=== PATIENT | male | born 1980 | race Two or more races ===

== ENCOUNTER 2024-12-16 11:12 | Inpatient (IN) | payer BC, SELFPAY ==
[2024-12-16] VITALS (25 sets, daily range): BP systolic 138–172; BP diastolic 54–107; PULSE 60–103; RESP 13–30; TEMP 36.1–37; O2SAT 95–100; BMI 34.4
--- NOTE | 2024-12-16 11:17 | EKG_ITS ---
[facility] Test Date: 2024-12-16 Pat Name: POPEYE BASHIR Department: Room: - Gender: Male Cost Specialist: : 1980 Requested By: Best Crowley Order Number: [id number] Reading MD: Best Crowley Measurements Intervals Winner Rate: 77 P: 49 VA: 182 QRS: -28 QRSD: 131 T: 89 QT: 386 QTc: 437 Interpretive Statements SINUS RHYTHM BORDERLINE LEFT AXIS DEVIATION [QRS AXIS < -20] INTRAVENTRICULAR CONDUCTION DELAY [130+ ms QRS DURATION] No previous ECG available for comparison /store/S0/[id number]
--- NOTE | 2024-12-16 11:26 | PD.EDRME ---
Rapid Medical Screening Exam RME Arrival date/time: 12/16/24 11:12 44-year-old male with no known medical history presents to the emergency room with a chief complaint of 8 out of 10 sternal chest pain that radiates to the bilateral shoulders x 2 hours. I have greeted and performed a focused initial assessment of this patient. A comprehensive ED assessment and evaluation of the patient, analysis of all test results, and completion of the medical decision making process will be conducted by additional ED providers. Chief Complaint: Chest Pain Vital signs reviewed by provider: Yes
--- NOTE | 2024-12-16 11:34 | EDNOTE_ITS ---
ED Chest Pain RME/HPI General Chief Complaint: Chest Pain Stated Complaint: Chest pain X 2 hours, radiating to left shoulder Time Seen by Provider: 12/16/24 11:34 Arrival date/time: 12/16/24 11:12 RME / HPI RME / HPI narrative: 12/16/24 11:12 44-year-old male with no known medical history presents to the emergency room with a chief complaint of 8 out of 10 sternal chest pain that radiates to the bilateral shoulders x 2 hours. I have greeted and performed a focused initial assessment of this patient. A comprehensive ED assessment and evaluation of the patient, analysis of all test results, and completion of the medical decision making process will be conducted by additional ED providers. This section includes all my notes and documentations, including HPI, PE, and ED course.? Pedro Perry MD HPI: 44 year old male with no stated medical history presents to the ED for evaluation of chest pain beginning at 09:00AM (about 2 hours ago) today while working out at the gym. Described pain as tightness in sensation that is located across his chest with radiation to bilateral shoulders, rating 8/10 in severity. Accompanied by sweating, nausea, and feeling short of breath. Denies any history of similar pain. No other complaints reported. ROS: All negative except as documented in HPI. Physical Exam: General:? Alert and oriented.? Appears uncomfortable. Eyes:? Conjunctivae and lids clear.? ENT:? No nasal congestion.? Neck:? Supple.? Heart:? RRR.? Lungs:? No respiratory distress.? Good air movement.? No rhonchi, wheezing, rales.?? Abdomen:? Soft and nontender.?? Legs:? No clubbing, cyanosis, edema.? Skin:? Warm and dry.?? Neuro:? Alert and oriented X 3.?? I reviewed all diagnostic test results. My interpretation of the EKG is?STEMI. Blood tests pending. At this point, diagnoses include?STEMI. Treatment here included?ASA and Brillinta and Heparin. I discussed the case with our eye physician who will take the patient to quality lab technician and be admitted by hospitalist team.? Discussed the presentation and exam and diagnostics and treatments here.? And need of further care in the hospital.? Will accept the patient. Pedro Perry MD Related Data Previous Rx's ?Medication ?Instructions ?Recorded aspirin 81 mg tablet,delayed 81 mg PO QDAY 6 months #1 80 tabs 12/16/24 release (Ecotrin Low Strength) atorvastatin 80 mg tablet 80 mg PO HS 6 months #180 ta bs 12/16/24 ticagrelor 90 mg tablet (Brilinta) 90 mg PO BID 6 isabella hs #360 tabs 12/16/24 carvedilol 6.25 mg tablet 6.25 mg PO BID #60 tabs 01/10 valsartan 160 mg tablet 160 mg PO BID #60 tabs 12/18 Allergies Allergy/AdvReac Type Severity Reaction Status Date / Time No Known Allergies Allergy Verified 12/16/24 11:16 Review of Systems Review of Systems Systems Reviewed: All systems reviewed, normal except as documented Past Medical History Past Medical History CARDIAC: Negative Congestive Heart Failure RESPIRATORY: Negative Chronic Obstructive Pulmonary Disease (COPD) GENITOURINARY: Negative Renal Disease ENDOCRINE: Negative Diabetes Mellitus Type 1 or Diabetes Mellitus Type 2 Social History SMOKING STATUS: Never smoker ED Exam Narrative Physical exam: As noted in HPI Course Quality Measures none Orders Category Date Time Status COVID-19 Screening Questionnaire NOW Care 12/16/24 11:40 Completed Decision to Admit X1 Care 12/16/24 11:40 Completed EKG (ED ONLY) *Do not use* NOW Care 12/16/24 11:18 Completed Saline [Insert IV] NOW Care 12/16/24 11:36 Completed Consult to Cardiology Stat Cons 12/16/24 11:36 Ordered EKG (ED Only) Stat Exams 12/16/24 11:17 Draft B-Type Natriuretic Peptide Stat Lab 12/16/24 11:37 Completed CBC Stat Lab 12/16/24 11:37 Completed Comprehensive Metabolic Panel Stat Lab 12/16/24 11:37 Completed Drug Screen,Urine Stat Lab 12/17/24 09:50 Completed Magnesium Stat Lab 12/16/24 11:37 Completed Troponin I Stat Lab 12/16/24 11:37 Completed Urinalysis Stat Lab 12/17/24 09:50 Completed Aspirin Chew Med 12/16/24 11:34 Discontinued 324 mg PO X1 ONE Heparin Inj Med 12/16/24 11:34 Discontinued 7,000 unit IVP X1 ONE Ticagrelor [Brilinta] Med 12/16/24 11:34 Discontinued 180 mg PO X1 ONE Vital Signs Vital signs: Vital Signs Temperature 97.8 F 12/16/24 11:26 Pulse Rate 84 12/16/24 11:26 Respiratory Rate 16 12/16/24 11:26 Blood Pressure 172/94 H 12/16/24 11:26 Pulse Oximetry (%) 99 12/16/24 11:26 Oxygen Delivery Method Room Air 12/16/24 11:26 Pulse ox is 99% on room air which is adequate. Chest Pain Patient data External records reviewed:: [facility] previous records (Per EMR, no previous visits for review ) Clinical information provided by:: patient Social determinants that could affect healthcare access:: none Patient has the following chronic illnesses:: None How is presenting disease/condition affected by chronic disease/condition?: no chronic disease Evaluation data The following diagnostics were reviewed and interpreted by me:: lab results and EKG tracing(s) Lab and/or radiology exams considered but not ordered:: none Interpretation Summary: STEMI Medications / Prescriptions Medications or Prescriptions considered but not ordered:: None Medication administrations:: Medication Administration History Discontinued Medications Acetaminophen (Acetaminophen 325 Mg Tablet) 650 mg PO Q6H PRN PRN Reason: Fever >101.5 Stop: 01/15/25 11:43 Acetaminophen (Acetaminophen 325 Mg Tablet) 650 mg PO Q6H PRN PRN Reason: PAIN SCALE 1-3 (mild Stop: 01/15/25 11:43 Last Admin: 12/16/24 21:23 Dose: 650 mg Documented By: RAZ Hydrocodone Bitart/Acetaminophen (Hydrocodone/Apap 5/325 Tablet) 1 tab PO Q4HR PRN PRN Reason: PAIN SCALE 4-6 (Moderate Stop: 12/21/24 11:43 Last Admin: 12/17/24 00:26 Dose: 1 tab Documented By: RASHAD Aspirin (Aspirin 81 Mg Chew) 324 mg PO X1 ONE Stop: 12/16/24 11:35 Last Admin: 12/16/24 17:11 Dose: Not Given Documented By: BLAINE Non-Admin Reason: Duplicate Medication on eMAR Aspirin (Aspirin Ec 81 Mg Tabec) 81 mg PO QDAY ANNETTE Stop: 01/16/25 08:59 Last Admin: 12/18/24 08:15 Dose: 81 mg Documented By: Admin: 12/17/24 08:04 Dose: 81 mg Documented By: ER Atorvastatin Calcium (Atorvastatin Calcium 20 Mg Tablet) 80 mg PO HS [facility] Stop: 01/15/25 20:59 Last Admin: 12/17/24 20:40 Dose: 80 mg Documented By: Admin: 12/16/24 21:23 Dose: 80 mg Documented By: CMN Atorvastatin Calcium (Atorvastatin Calcium 20 Mg Tablet) 80 mg PO [facility] Stop: 01/15/25 20:59 Last Admin: 12/16/24 21:39 Dose: Not Given Documented By: CMN Non-Admin Reason: Duplicate Medication on eMAR Carvedilol (Carvedilol 3.125 Mg Tablet) 3.125 mg PO BIDWM [facility] Stop: 01/15/25 18:24 Last Admin: 12/17/24 08:03 Dose: 3.125 mg Documented By: Admin: 12/16/24 19:03 Dose: 3.125 mg Documented By: ER Carvedilol (Carvedilol 3.125 Mg Tablet) 6.25 mg PO BIDWM [facility] Stop: 01/16/25 17:29 Last Admin: 12/18/24 08:18 Dose: 6.25 mg Documented By: Admin: 12/17/24 17:40 Dose: 6.25 mg Documented By: ER Heparin Sodium (Porcine) (Heparin Sod Inj 5000 Unit/Ml Vial) 7,000 unit IVP X1 ONE Stop: 12/16/24 11:35 Last Admin: 12/16/24 17:11 Dose: Not Given Documented By: DL Non-Admin Reason: Duplicate Medication on eMAR Heparin Sodium (Porcine) (Heparin Sod Inj 5000 Unit/Ml Vial) 5,000 unit SC BID [facility] Stop: 12/30/24 20:59 Potassium Chloride (Kcl Ivpb) 10 meq in 100 mls @ 100 mls/hr IV Q1H ANNETTE Stop: 12/16/24 14:22 Last Admin: 12/16/24 17:43 Dose: Not Given Documented By: ER Non-Admin Reason: PT IN OTHER UNIT, CHART CLEAN U Admin: 12/16/24 17:42 Dose: Not Given Documented By: ER Non-Admin Reason: PT IN OTHER UNIT, CHART CLEAN U Magnesium Sulfate (Magnesium Sulfate Ivpb) 2 gm in 50 mls @ 25 mls/hr IV X1 ONE Stop: 12/16/24 14:22 Last Admin: 12/16/24 17:42 Dose: Not Given Documented By: ER Non-Admin Reason: PT IN OTHER UNIT, CHART CLEAN UP Sodium Chloride (Ns 0.45%) 500 mls @ 100 mls/hr IV .Q5H [facility] Stop: 01/15/25 13:29 Last Admin: 12/16/24 18:21 Dose: Not Given Documented By: ER Non-Admin Reason: Cancelled by Provider Admin: 12/16/24 13:30 Dose: 100 mls/hr Documented By: DL Melatonin (Melatonin 3 Mg Tablet) 3 mg PO X1 ONE Stop: 12/16/24 21:32 Last Admin: 12/16/24 21:43 Dose: 3 mg Documented By: CMN Morphine Sulfate (Morphine Sulf Inj 10 Mg/Ml Vial) 2 mg IVP Q4HR PRN PRN Reason: Pain 7-10 Stop: 12/21/24 14:47 Nitroglycerin (Nitroglycerin 0.4 Mg Subl Btl #25) 0.4 mg SL Q5MIN PRN PRN Reason: CHEST PAIN Ondansetron HCl (Ondansetron Inj 2 Mg/Ml Inj 2 Ml) 4 mg IV Q6H PRN; Protocol PRN Reason: NAUSEA OR VOMITING Stop: 01/15/25 11:43 Last Admin: 12/17/24 00:27 Dose: 4 mg Documented By: RH Pantoprazole Sodium (Pantoprazole Inj 40 Mg Vial) 40 mg IVP QDAY [facility] Stop: 01/16/25 08:59 Last Admin: 12/17/24 08:04 Dose: 40 mg Documented By: ER Potassium Chloride (Potassium Chloride 20 Meq Tabcr) 40 meq PO X1 ONE Stop: 12/17/24 12:55 Last Admin: 12/17/24 13:23 Dose: 40 meq Documented By: ER Sennosides (Senna Tablet) 1 tab PO QDAY PRN; Protocol PRN Reason: constipation Stop: 01/15/25 11:43 Ticagrelor (Ticagrelor 90 Mg Tablet) 180 mg PO X1 ONE Stop: 12/16/24 11:35 Last Admin: 12/16/24 17:11 Dose: Not Given Documented By: DL Non-Admin Reason: Duplicate Medication on eMAR Ticagrelor (Ticagrelor 90 Mg Tablet) 90 mg PO BID ANNETTE Stop: 01/16/25 08:59 Last Admin: 12/18/24 08:14 Dose: 90 mg Documented By: Admin: 12/17/24 20:44 Dose: 90 mg Documented By: Admin: 12/17/24 08:04 Dose: 90 mg Documented By: ER Ticagrelor (Ticagrelor 90 Mg Tablet) 90 mg PO X1 ONE Stop: 12/16/24 20:01 Last Admin: 12/16/24 21:25 Dose: 90 mg Documented By: RAZ Ticagrelor (Ticagrelor 90 Mg Tablet) 90 mg PO BID ANNETTE Stop: 01/16/25 08:59 Valsartan (Valsartan 80 Mg Tablet) 80 mg PO BID ANNETTE Stop: 01/15/25 20:59 Last Admin: 12/18/24 08:15 Dose: 80 mg Documented By: Admin: 12/17/24 20:42 Dose: 80 mg Documented By: Admin: 12/17/24 08:04 Dose: 80 mg Documented By: Admin: 12/16/24 21:23 Dose: 80 mg Documented By: RAZ ASA and Brillinta and Heparin Consultations Consultation(s) initiated? (list below): Yes Consultation #1 (Physician, Specialty, Details): I spoke with our eye physician Dr. Ward and he agrees to consult. Diagnosis Chest Pain Differential Diagnosis: pneumothorax, stable angina, unstable angina pectoris, atypical chest pain, st elevation myocardial infarction and costochondritis Most likely diagnosis given after review of the tests above:: STEMI Admission Indicated Admission indicated?: indicated Explain why admission is indicated or not indicated:: STEMI Admission Request Was there a request for admission?: Yes Admission Attestation Admission request attestation: Discussed case with Hospitalist service regarding admission. Discussed patients ED course, exam findings, labs, and radiology results. The Hospitalist [agrees] to accept the patient for admission. Disposition Plan Disposition Plan: Admit Discharge Plan Plan Patient Disposition: Admit Acute Care w/in Hospital Patient condition on transfer: Stable Problem List Clinical Impression: ST elevation myocardial infarction (STEMI) Patient/Caregiver Discharge Instructions Discharge Activity: other Other Activity Instructions:: Please refrain from lifting weights for 5 days, slowly increasing physical activity. No driving for 5 days. Start new medication aspirin 81 mg daily, atorvastatin 80 mg daily, Brilinta 90 mg twice daily, valsartan 160 mg twice daily, Coreg 6.25 twice a day. Low salt, low fat diet. Avoid greasy foods/fast food Schedule follow-up appointment with eye physician Dr. Ed FERRELL. Schedule follow-up appointment with your primary care provider Please return to ED if new symptoms occur such as any shortness of breath, chest pain, weakness.
--- NOTE | 2024-12-16 11:42 | PC.NURSE ---
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
[2024-12-16 11:45] LABS: Basophils % (Auto) 0 % (0-2.5); Eosinophils # (Auto) 0.1 Thou/mm3 (0.0-0.5); Eosinophils % (Auto) 0 % (0-10); Hematocrit 48.7 % (41.0-53.0); Hemoglobin 16.9 g/dL (13.5-16.0); Immature Granulocytes % (Auto) 0 % (0-0); Immature Granulocytes Auto 0.05 Thou/mm3 (0.00-0.00); Lymphocytes # (Auto) 2.1 Thou/mm3 (1.0-4.8); Lymphocytes % (Auto) 14 % (10-50); Mean Corpuscular HGB Conc 34.7 g/dl (31.0-37.0); Mean Corpuscular Hemoglobin 30.4 pg (25.0-35.0); Mean Corpuscular Volume 88 fL (80-100); Monocytes # (Auto) 1.1 Thou/mm3 (0.0-0.8); Monocytes % (Auto) 7 % (0-12); Neutrophils # (Auto) 12.4 Thou/mm3 (1.8-7.7); Neutrophils % (Auto) 79 % (37-80); Nucleated Red Blood Cell % 0 /100 WBC (0); Platelet Count 213 Thou/mm3 (140-440); RDW Standard Deviation 45.2 fL (35.1-43.9); Red Blood Count 5.56 Miln/mm3 (4.50-5.90); White Blood Count 15.8 Thou/mm3 (3.8-10.6)
--- NOTE | 2024-12-16 11:49 | PD.RESHP ---
Documentation for date of: 12/16/24 HPI History of Present Illness Chief complaint: chest pain History of present illness: This patient is a 44-year-old male with no significant past medical history presented to the ED on 12/16/2024 with chief complaint of chest pain, nausea and shortness of breath. Per Ground Host/Hostess chart nurse patient was doing exercises in gym after which he developed chest pain. He was also having associated nausea and shortness of breath. He was brought in the ED. Patient's history was taking in the [employer]. He reported that he developed chest pain while working out at the gym. He reported that he never had experience this kind of chest pain pain was 8 out of 10 pain to both shoulders. He also has associated breathing difficulty with anxiety. 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 He does have some social stressors however did not share during assessment. He denied any smoking or drinking alcohol or illicit drug use. Vitals on admission showed elevated blood pressure of 172/94. Pulse 84 bpm. Afebrile and satting well on room air. EKG showed ST-T elevations in lead to 3 [address] reciprocal ST depressions in anterior leads V1 and V2. Labs were significant for leukocytosis and erythrocytosis. CHEM panel was significant for borderline hypokalemia. Kidney functions were unremarkable. Blood glucose 131. Mildly elevated AST.Troponin I was 0.758. PMH: Not significant PSH: Inguinal hernia surgery in childhood SH: Denies drinking alcohol, smoking tobacco. No history of illicit drug use. 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 He is not . He has 2 kids. Home medications: Not taking any medications Family history: Mother has diabetes no cardiac history Allergies: NKDA Patient is admitted for STEMI s/p complex PCI to PJ and PDA with thrombectomy. Review of Systems Review of Systems Systems Reviewed: All systems reviewed, normal except as documented Exam Vital Signs Temp Pulse Resp BP Pulse Ox O2 Del Method 97.8 F 84 16 172/94 H 99 Room Air 12/16/24 11:26 12/16/24 11:26 12/16/24 11:26 12/16/24 11:26 12/16/24 11:26 12/16/24 11:26 Narrative Exam GENERAL APPEARANCE: AxOx4, male in no acute distress. HEENT: NC, AT. MMM. EOMI, clear conjunctiva, oropharynx clear. NECK: Supple without lymphadenopathy. No stiffness or restricted ROM. HEART: Regular rate and regular rhythm, normal S1/S2, no m/r/g LUNGS: CTAB, moving air well. No crackles or wheezes are heard. ABDOMEN: Soft, nontender, nondistended with good bowel sounds heard. BACK: No CVAT, no obvious deformity. EXTREMITIES: Without cyanosis, clubbing or edema. NEUROLOGICAL: Grossly nonfocal. Alert and oriented, moving all 4 extremities. CN not formally tested but appear grossly intact. Observed to ambulate with normal gait. Skin: Warm and dry without any rash. Results: Labs 12/17/24 04:44 12/17/24 04:44 Quality Measures Quality Measures VTE prophylaxis Medications Home Medications and Allergies Allergies Allergy/AdvReac Type Severity Reaction Status Date / Time No Known Allergies Allergy Verified 12/16/24 11:16 Visit Medications Acetaminophen (Acetaminophen 325 Mg Tablet) 650 mg PO Q6H PRN PRN Reason: Fever >101.5 Stop: 01/15/25 11:43 Acetaminophen (Acetaminophen 325 Mg Tablet) 650 mg PO Q6H PRN PRN Reason: PAIN SCALE 1-3 (mild Stop: 01/15/25 11:43 Hydrocodone Bitart/Acetaminophen (Hydrocodone/Apap 5/325 Tablet) 1 tab PO Q4HR PRN PRN Reason: PAIN SCALE 4-6 (Moderate Stop: 12/21/24 11:43 Nitroglycerin (Nitroglycerin 0.4 Mg Subl Btl #25) 0.4 mg SL Q5MIN PRN PRN Reason: CHEST PAIN Ondansetron HCl (Ondansetron Inj 2 Mg/Ml Inj 2 Ml) 4 mg IV Q6H PRN; Protocol PRN Reason: NAUSEA OR VOMITING Stop: 01/15/25 11:43 Pantoprazole Sodium (Pantoprazole Inj 40 Mg Vial) 40 mg IVP QDAY ANNETTE Stop: 01/16/25 08:59 Sennosides (Senna Tablet) 1 tab PO QDAY PRN; Protocol PRN Reason: constipation Stop: 01/15/25 11:43 Discontinued Medications Aspirin (Aspirin 81 Mg Chew) 324 mg PO X1 ONE Stop: 12/16/24 11:35 Heparin Sodium (Porcine) (Heparin Sod Inj 5000 Unit/Ml Vial) 7,000 unit IVP X1 ONE Stop: 12/16/24 11:35 Ticagrelor (Ticagrelor 90 Mg Tablet) 180 mg PO X1 ONE Stop: 12/16/24 11:35 Assessment & Plan Plan Summary: This patient is a 44-year-old male with no significant past medical history presented to ED with symptoms of chest pain. Patient is admitted for STEMI workup. Underwent cardiac angiogram and had stents placed in PJ and PDA with thrombectomy by Dr. Ward, education consultant. #ACS #STEMI,Inferior Wall WA #S/p PCI to PDA and PJ with thrombectomy #Mild hypotension ?Patient presented with chest pain most likely typical. Patient was working out in gym developed nausea and shortness of breath as well. Denies smoking or drinking alcohol ? EKG showed ST elevations in lead to 3 and reciprocal changes in lead V1 and V2 with ST depressions. ? Labs were significant for mild leukocytosis and erythrocytosis. BUN 19 and creatinine 1.1 ? In the ED patient received aspirin and Brilinta bolus. ?Heart alert was initiated Plan: ?Cardiac angiogram was performed after cardiac consultation, by Dr. Ward ? Stents were placed in PJ and PDA with thrombectomy ? Recommended to continue aspirin 81 mg and Brilinta 90 mg twice daily with high-dose statin atorvastatin 80 mg at bedtime ? Per cardio, patient beta-fam at discharge ? Patient will be in ICU for close observation due to hypotension ? Pain control and nausea control as needed ? Daily labs ? Troponin every 6 hourly ? Replete electrolytes as necessary ? Follow-up with A1c, TSH and lipid panel #Leukocytosis likely reactive -WBC 15.8 Plan: ? Follow-up with CBC ? Monitor for fever spikes #Erythrocytosis ? Hemoglobin 16.9 ? Will ask for history of supplements use Plan: ? Continue IV fluids ? Daily CBC #Hyperglycemia ? Blood glucose 131 BMI 34 Plan: ? Follow-up with A1c #Electrolyte disturbance #Hypokalemia Plan: ?Ordered IV 20 mEq KCl x 1 ? Replete electrolytes as necessary Health Maintenance Diet:NPO GI Prophylaxis: Protonix DVT Prophylaxis: Heparin SC Code status: Full Code Disp: Admitted for STEMI workup s/p PCI stents to PJ and PDA with thrombectomy. -- Patient was seen and discussed with my attending Physician,MD Dr Janae Tolbert MD,PGY2 Disclaimer: This note was dictated by speech recognition. 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 Attending Provider Attestation/Addendum I have examined the patient, reviewed labs and imaging findings, discussed the case with the resident(s), and reviewed entered orders. I agree with the plan of care as outlined in this document. Patient presented with chest pain and heart alert was called and found to have multiple occlusions in PDA and PJ status post stent placement and thrombectomy. Patient will be upgraded to ICU for close monitoring overnight. Will resume care tomorrow as patient is stable. Jose Weaver MD
[2024-12-16 12:03] LABS: B-Type Natriuretic Peptide < 20 pg/mL (0-100)
[2024-12-16 12:09] LABS: Alanine Aminotransferase 45 U/L (10-49); Albumin, Serum 4.5 gm/dL (3.5-5.0); Albumin/Globulin Ratio 1.3 (1.2-2.2); Alkaline Phosphatase 53 U/L (46-116); Anion Gap 8 (7-16); Aspartate Amino Transferase 55 U/L (0-34); BUN/Creatinine Ratio 17 Ratio (12-20); Bilirubin,Total 0.6 mg/dL (0.3-1.2); Blood Urea Nitrogen 19 mg/dL (9-23); Calcium 8.8 mg/dL (8.3-10.6); Calcium (Corrected) 8.8 mg/dL (8.5-10.1); Carbon Dioxide 26.3 mMol/L (20.0-31.0); Chloride 103 mMol/L (98-107); Creatinine (Component) 1.1 mg/dL (0.6-1.3); Estimated Creatinine Clearance 121.2 mL/min (>60); Globulin 3.4 gm/dL (2.3-3.5); Glucose 131 mg/dL (74-106); Magnesium 1.8 mg/dL (1.6-2.6); Osmolality,Calculated 278 (275-295); Potassium 3.5 mMol/L (3.4-5.1); Sodium 137 mMol/L (136-145); Total Protein 7.9 gm/dL (5.7-8.2); eGFR > 60 See Note
[2024-12-16 12:13] LABS: Troponin I 0.758 ng/mL (0.0-0.045)
--- NOTE | 2024-12-16 12:23 | ECHO_ITS ---
Transthoracic Echo Report Ht (in): 74 Wt (lb): 268 Exam Location: Echo Lab Status: Preadmit Blocker And Cutter Contact Lens: Alba Pugh Indications: Procedure Performed: BP: 143 / 73 HR: 73 Technical Quality: Technically difficult study MEASUREMENTS (Male / Female) Normal Values 2D ECHO LV Diastolic Diameter PLAX 5.1 cm 4.2 - 5.9 / 3.9 - 5.3 cm LV Systolic Diameter PLAX 3.7 cm IVS Diastolic Thickness 1.3 cm 0.6 - 1.0 / 0.6 - 0.9 cm LVPW Diastolic Thickness 1.3 cm 0.6 - 1.0 / 0.6 - 0.9 cm LV Relative Wall Thickness 0.5 LVOT Diameter 1.8 cm LA Volume Index 23.0 cm?/m? 16 - 28 cm?/m? M-MODE Aortic Root Diameter MM 3.4 cm AV Cusp Separation MM 2.5 cm DOPPLER AV Peak Velocity 136.0 cm/s AV Peak Gradient 7.4 mmHg AV Mean Gradient 4.0 mmHg AV Velocity Time Integral 23.3 cm LVOT Peak Velocity 125.0 cm/s LVOT Peak Gradient 6.3 mmHg LVOT Velocity Time Integral 23.7 cm LVOT Cardiac Index 1722.2 cm?/min?m? AV Area Cont Eq vti 2.6 cm? AV Area Cont Eq pk 2.3 cm? MV Area PHT 5.1 cm? Mitral E Point Velocity 71.3 cm/s Mitral A Point Velocity 50.4 cm/s Mitral E to A Ratio 1.4 LV E' Lateral Velocity 10.8 cm/s Mitral E to LV E' Lateral Ratio 6.6 LV E' Septal Velocity 9.9 cm/s Mitral E to LV E' Septal Ratio 7.2 PV Peak Velocity 109.0 cm/s PV Peak Gradient 4.8 mmHg FINDINGS Left Ventricle Normal left ventricular size. Hypokinetic mid-inferolateral wall motion. Mild LVH. Normal left ventricular diastolic filling pattern for age. The ejection fraction is visually estimated at 50%. Right Ventricle The right ventricle is normal in size and systolic function. Left Atrium The left atrium is normal by two-dimensional, color flow and Doppler imaging with no structural abnormalities, no thrombus formation present. Right Atrium The right atrium is normal by two-dimensional imaging, color flow and Doppler imaging with no structural abnormalities, no thrombus formation present. Atrial Septum The interatrial septum appears normal with no evidence of a shunt. Aorta The aorta is normal by two-dimensional, color flow and Doppler interrogation. Mitral Valve The mitral valve is normal by two-dimensional, color flow and Doppler interrogation. There is no significant mitral valve regurgitation, stenosis or prolapse. Aortic Valve The aortic valve is trileaflet and normal by two-dimensional, color flow and Doppler interrogation. There is no significant aortic valve regurgitation. Tricuspid Valve The tricuspid valve is normal by two-dimensional, color flow and Doppler interrogation. There is no significant tricuspid valve regurgitation. Pulmonic Valve The pulmonic valve is not well visualized. There is no significant pulmonic valve regurgitation. Vessels The pulmonary artery appears normal. The inferior vena cava pulmonary and hepatic veins appear normal. Pericardium The pericardium is normal by two-dimensional imaging. There is no significant pericardial effusion. CONCLUSIONS Indication: STEMI Normal LV size. Hypokinetic mid-inferolateral wall motion. Mild LVH. Estimated EF 50%. RV is normal in size and systolic function. Triny Gooden (Electronically Signed) Final Date: 18 December 2024 00:30
[2024-12-16] MEDS: SODIUM CHLORIDE 0.45 % 500 ML 100 ML IV (13:30)
--- NOTE | 2024-12-16 14:21 | PC.NURSE ---
[id number] patient is awake, alert, breathing unlabored, s/p LHC by Dr. Ward, report received from Delbert MEMBRENO. patient to receive aspirin tomorrow and brilinta 90mg tonight.
--- NOTE | 2024-12-16 14:24 | PC.NURSE ---
1400 report given to Vu MEMBRENO. TR band to right wrist with no bleeding or hematoma
--- NOTE | 2024-12-16 16:30 | PC.NURSE ---
report given to TEMI Dawson RN aware that patient needs to rest the right wrist for the next 3-5 days and cannot lift anything heavier or equal to 5 pounds blue coband can be removed on 11/16/24 at 1645 and clear tegaderm (which is under the tegaderm) can be removed 48 hours later on 11/17/24 at 1645 patient stable on RA
--- NOTE | 2024-12-16 18:52 | ESCONSULT_ITS ---
<Statement entered by Nikki Zhang DO - 12/16/24 21:19> Senior attestation: Patient was examined and case was reviewed with team including attending physician. Note reviewed, I agree with most of its contents and agree with the patient's care. In summary, patient is a 44 year old male without pertinent medical history who presented to the ED with concerns of new-onset chest pain, was found to have ST elevations on inferior leads II and III on EKG in setting of elevated troponin. 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 Ward was consulted, patient underwent catheterization with stent placement and thrombectomy, operative report pending. Following cardiology intervention, patient was transferred to ICU for close observation. Heaprin has been stopped, will continue with atorvastatin, aspirin, and brilinta. Following cardiology recommendations, will start coreg 3.125 mg BID and valsartan 80mg BID today, anticipate downgrade to telemetry floors tomorrow if clinically stable. Nikki Zhang DO PGY-3 HPI Data of Consult Requesting Physician: Jose Weaver MD Admitting Provider: Jose Weaver MD Attending Provider: Jose Weaver MD Primary Care Provider: Physician No Primary/Family Consult Narrative Reason for consult: ACS monitoring History of present illness: Reece Joyce is 44 yr male with no significant PMH who presented to ED this morning after experiencing new onset chest pain. Pain was central with no radiation to arms, neck, or back. Started this monring after spending some time in the gym. He noticed increased diaphoresis with some SOB, worsening tightness that didn't resolved with rest. Pain scale 8/10 which continued until starting treatment in ED. He denies any headaches, vision changes, no previous episodes as this. Last time he saw PCP was a year ago. He endorses healthy lifestyle. In ED EKG showed ST elevation in II, III, avF. Trops were elevated and was taken immediately for cath done by Dr. Ward. Angiogram showed 3 blockages in PJ, PDA, and RCA. Post cath patient is feeling better with no more pain. Per cardiology, will continue statin, Brellinta, and monitor BP. cc:: cc: Jose Weaver MD Exam Vital Signs Temp Pulse Resp BP Pulse Ox O2 Del Method 96.9 F 70 13 151/81 H 99 Room Air 12/16/24 17:15 12/16/24 18:01 12/16/24 18:01 12/16/24 18:01 12/16/24 18:12/16/24 17:15 Narrative Exam GENERAL APPEARANCE: AxOx4, male in no acute distress. HEENT: NC, AT. MMM. EOMI, clear conjunctiva, oropharynx clear. NECK: Supple without lymphadenopathy. No stiffness or restricted ROM. HEART: Regular rate and regular rhythm, normal S1/S2, no m/r/g LUNGS: No crackles or wheezes are heard. ABDOMEN: Soft, nontender, nondistended with good bowel sounds heard. EXTREMITIES: Without cyanosis, clubbing or edema. NEUROLOGICAL: Grossly intact. Alert and oriented, moving all 4 extremities. Results Labs 12/16/24 11:37 12/16/24 11:37 Labs: Short CBC 12/16/24 Range/Units 11:37 WBC 15.8 H (3.8-10.6) Thou/mm3 Hgb 16.9 H (13.5-16.0) g/dL Hct 48.7 (41.0-53.0) % Plt Count 213 (140-440) Thou/mm3 BMP 12/16/24 11:37 Sodium 137 Potassium 3.5 Chloride 103 Carbon Dioxide 26.3 BUN 19 Creatinine 1.1 Glucose 131 H Calcium 8.8 Cardiac Enzymes 12/16/24 12/16/24 Range/Units 11:37 13:47 Troponin I 0.758 H* 75.360 H* D (0.0-0.045) ng/mL Liver Function 12/16/24 Range/Units 11:37 Total Bilirubin 0.6 (0.3-1.2) mg/dL AST 55 H (0-34) U/L ALT 45 (10-49) U/L Alkaline Phosphatase 53 (46-116) U/L Albumin 4.5 (3.5-5.0) gm/dL Quality Measures Quality Measures none Medications Home Medications and Allergies Allergies Allergy/AdvReac Type Severity Reaction Status Date / Time No Known Allergies Allergy Verified 12/16/24 11:16 Visit Medications Acetaminophen (Acetaminophen 325 Mg Tablet) 650 mg PO Q6H PRN PRN Reason: Fever >101.5 Stop: 01/15/25 11:43 Acetaminophen (Acetaminophen 325 Mg Tablet) 650 mg PO Q6H PRN PRN Reason: PAIN SCALE 1-3 (mild Stop: 01/15/25 11:43 Hydrocodone Bitart/Acetaminophen (Hydrocodone/Apap 5/325 Tablet) 1 tab PO Q4HR PRN PRN Reason: PAIN SCALE 4-6 (Moderate Stop: 12/21/24 11:43 Aspirin (Aspirin Ec 81 Mg Tabec) 81 mg PO QDAY [facility] Stop: 01/16/25 08:59 Atorvastatin Calcium (Atorvastatin Calcium 20 Mg Tablet) 80 mg PO HS [facility] Stop: 01/15/25 20:59 Atorvastatin Calcium (Atorvastatin Calcium 20 Mg Tablet) 80 mg PO HS [facility] Stop: 01/15/25 20:59 Carvedilol (Carvedilol 3.125 Mg Tablet) 3.125 mg PO BIDWM [facility] Stop: 01/15/25 18:24 Heparin Sodium (Porcine) (Heparin Sod Inj 5000 Unit/Ml Vial) 5,000 unit SC BID [facility] Stop: 12/30/24 20:59 Nitroglycerin (Nitroglycerin 0.4 Mg Subl Btl #25) 0.4 mg SL Q5MIN PRN PRN Reason: CHEST PAIN Ondansetron HCl (Ondansetron Inj 2 Mg/Ml Inj 2 Ml) 4 mg IV Q6H PRN; Protocol PRN Reason: NAUSEA OR VOMITING Stop: 01/15/25 11:43 Pantoprazole Sodium (Pantoprazole Inj 40 Mg Vial) 40 mg IVP QDAY [facility] Stop: 01/16/25 08:59 Sennosides (Senna Tablet) 1 tab PO QDAY PRN; Protocol PRN Reason: constipation Stop: 01/15/25 11:43 Ticagrelor (Ticagrelor 90 Mg Tablet) 90 mg PO BID [facility] Stop: 01/16/25 08:59 Ticagrelor (Ticagrelor 90 Mg Tablet) 90 mg PO X1 ONE Stop: 12/16/24 20:01 Ticagrelor (Ticagrelor 90 Mg Tablet) 90 mg PO BID [facility] Stop: 01/16/25 08:59 Valsartan (Valsartan 80 Mg Tablet) 80 mg PO BID [facility] Stop: 01/15/25 20:59 Discontinued Medications Aspirin (Aspirin 81 Mg Chew) 324 mg PO X1 ONE Stop: 12/16/24 11:35 Last Admin: 12/16/24 17:11 Dose: Not Given Heparin Sodium (Porcine) (Heparin Sod Inj 5000 Unit/Ml Vial) 7,000 unit IVP X1 ONE Stop: 12/16/24 11:35 Last Admin: 12/16/24 17:11 Dose: Not Given Potassium Chloride (Kcl Ivpb) 10 meq in 100 mls @ 100 mls/hr IV Q1H [facility] Stop: 12/16/24 14:22 Last Admin: 12/16/24 17:43 Dose: Not Given Magnesium Sulfate (Magnesium Sulfate Ivpb) 2 gm in 50 mls @ 25 mls/hr IV X1 ONE Stop: 12/16/24 14:22 Last Admin: 12/16/24 17:42 Dose: Not Given Sodium Chloride (Ns 0.45%) 500 mls @ 100 mls/hr IV .Q5H [facility] Stop: 01/15/25 13:29 Last Admin: 12/16/24 18:21 Dose: Not Given Morphine Sulfate (Morphine Sulf Inj 10 Mg/Ml Vial) 2 mg IVP Q4HR PRN PRN Reason: Pain 7-10 Stop: 12/21/24 14:47 Ticagrelor (Ticagrelor 90 Mg Tablet) 180 mg PO X1 ONE Stop: 12/16/24 11:35 Last Admin: 12/16/24 17:11 Dose: Not Given Assessment & Plan Plan Summary: This patient is a 44-year-old male with no significant past medical history presented to ED with symptoms of chest pain. Patient is admitted for STEMI workup. Underwent cardiac angiogram and had stents placed in PJ and PDA with thrombectomy by Dr. Ward, stitcher around. Neuro: no active problems CVS: #ACS #STEMI,Inferior Wall [place] #S/p PCI to PDA and PJ with thrombectomy #Mild hypotension ?Patient presented with chest pain most likely typical. Patient was working out in gym developed nausea and shortness of breath as well. Denies smoking or drinking alcohol ? EKG showed ST elevations in lead to 3 and reciprocal changes in lead V1 and V2 with ST depressions. ? Labs were significant for mild leukocytosis and erythrocytosis. BUN 19 and creatinine 1.1 ? In the ED patient received aspirin and Brilinta bolus. -s/p cardiac cath with stents and thrombectomy by Dr. Ward ? Recommended to continue aspirin 81 mg and Brilinta 90 mg twice daily with high-dose statin atorvastatin 80 mg at bedtime -stop heparin -start atorvastatin 80 mg daily ? Per cardio, patient beta-fam at discharge ? Pain control and nausea control as needed -monitor BP--no hypotensive readings since admission ? Daily labs ? Troponin every 6 hourly ?potassium >4, Mg >2 ? Follow-up with A1c, TSH and lipid panel Resp: no active problems GI; no active problems Renal: no active problems Heme/Onc: #Leukocytosis likely reactive -WBC 15.8 ? Follow-up with CBC ? Monitor for fever spikes #Erythrocytosis ? Hemoglobin 16.9 -denies any supplement use except for vitamins -continue to monitor Health Maintenance Diet:NPO GI Prophylaxis: Protonix 40 DVT Prophylaxis: heparin stopped per cardiology Code status: Full Code Disp: Admitted for STEMI workup s/p PCI stents to PJ and PDA with thrombectomy. The patient's management plan was discussed with my attending physician Dr. Grace and senior Dr. Zhang. Rosey Diaz, PGY-1
[2024-12-16] MEDS: carVEDILOL 3.125 MG TABLET PO (19:03)
[2024-12-16 19:36] LABS: Troponin I > 125000.000 ng/mL (0.0-0.045)
[2024-12-16] MEDS: VALSARTAN 80 MG TABLET PO (21:23)
[2024-12-16] MEDS: ATORVASTATIN CALCIUM 20 MG TABLET 80 MG PO (21:23)
[2024-12-16] MEDS: ACETAMINOPHEN 325 MG TABLET 650 MG PO (21:23)
[2024-12-16] MEDS: TICAGRELOR 90 MG TABLET PO (21:25)
[2024-12-16] MEDS: MELATONIN 3 MG TABLET PO (21:43)
[2024-12-17] VITALS (133 sets, daily range): BP systolic 110–157; BP diastolic 52–82; PULSE 55–105; RESP 6–32; TEMP 36.1–37.2; O2SAT 75–99
[2024-12-17] MEDS: HYDROcodone/APAP 5/325 TABLET 1 TAB PO (00:26)
[2024-12-17] MEDS: ONDANSETRON INJ 2 MG/ML INJ 2 ML 4 MG IV (00:27)
--- NOTE | 2024-12-17 00:53 | ESOP_ITS ---
RE: POPEYE BASHIR : 1980 DATE OF OPERATION: 12/16/2024 PROCEDURE PERFORMED: 1. Emergency diagnostic left heart cardiac catheterization, selective coronary angiogram, left ventricular angiogram, CPT 89875. 2. Emergency primary angioplasty, atherectomy, primary angioplasty, stent placement of the right coronary artery, placement of drug-eluting stent 3.5 x 15 mm [place] Medtronic stent, preprocedure stenosis 100%, postprocedure stenosis 0%, RAINER flow preprocedure 0, postprocedure 3. cpt 75657 3. Coronary angioplasty, computer-assisted vacuum thrombectomy of the posterior descending branch of the right coronary artery and angioplasty, infarct vessel, underwent successful angioplasty, CPT 72951 and 16930, preprocedure stenosis 100%, postprocedure stenosis 0%. Preprocedure RAINER flow 0, postprocedure RAINER flow 3. 4. Unsuccessful angioplasty of the posterolateral branch 2 of the right coronary artery. Preprocedure stenosis 100%, postprocedure stenosis 100%, due to extensive thrombus, unable to restore flow, but angioplasty performed. CPT 64195. 5. Ultrasound-guided access of right radial artery. 6. Conscious sedation of one hour duration. DIAGNOSIS: Acute ST-T elevation inferior myocardial infarction, cardiogenic shock. HISTORY AND INDICATIONS: The patient is a 44-year-old male with a past medical history of no medical problems. He came to the hospital from the exercise place after two hours of chest pain, drove himself with acute chest pain radiating to both shoulders, severe chest pain, found to have acute ST-segment elevation, inferior wall lateral myocardial infarction. The patient was transferred immediately to cardiac catheterization laboratory. primary_ angioplasty was performed. DESCRIPTION OF PROCEDURE: Details were as follows: The patient was given concentration using 2 mg of Versed and morphine 4 mg x3 doses, right radial approach taken. The right radial artery cannulated with micropuncture techniques. A 6-Moldovan glide sheet was induced. Selective right and left coronary angiogram, left heart catheterization, left ventricular angiogram performed by 5-Moldovan TIG-4 diagnostic catheter. It showed following finding: Right coronary artery is largely dominant, gives off PDA and PL branches. PDA is totally occluded in the proximal segment. Large posterolateral branch was totally occluded. Distal vessel is occluded 100% with zero flow. One of the branches of PL branch is also occluded totally. Left coronary system: Left main coronary is normal. Left anterior descending artery showed no significant stenosis. Circumflex artery is normal. Left ventricular pressure is recorded to be 106/16, aortic pressure 106/80, no gradient across the aortic valve. Left ventricular angiogram showed mild inferolateral hypokinesis. Ejection fraction 45% to 50%. Following diagnostic procedure, intervention was undertaken. The patient was given a total of 10,000 units of heparin IV, aspirin and brilliant loading dose given. Right coronary artery was cannulated by FR-4 guiding catheter. The 0.014 runthrough guidewire was used to cross the lesion successfully. Posterolateral branch was 100% occluded, underwent successful angioplasty, restored the flow in the posterolateral branch. Subsequently, right carotid artery PD branch was 100% occluded. I passed a 0.014 [employer] [employer] guidewire, dilated with 2 and 3 mm balloons. There was no reflow phenomenon. Intracoronary adenosine and nitroglycerine was given. Still no reflow phenomenon. Hence computer-assisted vacuum thrombectomy was then performed using penumbra coronary catheter and clot was removed and the flow was established in the posterior descending artery. Subsequently, balloon angioplasty of the posterior descending artery performed by using 2.5 and 3 mm balloons with excellent angiographic results. The distal flow was diminished, but the branches were seen. The left posterolateral branch #2 was a 2.5 to 3 mm vessel with extreme tortuosity that was crossed using runthrough guidewire and angioplasty was performed using 2.5 and 3 mm balloons and no reflow was seen. There was some thrombus, but could not see. Thrombectomy catheter could not be advanced because of extreme tortuosity. This vessel appeared to be totally occluded, unable to restore flow despite giving IC adenosine and IC nitroglycerine. Final angiogram after complex procedure showed evidence of widely patent right carotid artery, posterior descending artery and posterolateral branches with excellent angiographic results. Pre-procedure stenosis 100%, postprocedure 0%. One of the posterolateral branches showed pre-processed 100% and post-process 100%. FINAL SUMMARY: 1. Successful complex coronary intervention, primary angioplasty, stent placement of circumflex artery, posterolateral branch. 2. Successful computer-assisted vacuum thrombectomy, CAVT by penumbra thrombectomy device used for thrombectomy and angioplasty. 3. Unsuccessful angioplasty of one of the PL branches of circumflex artery. RECOMMENDATIONS: Continue aspirin and Brilinta. Admit to intense care unit and will start on beta-fam, ARB depending on the patient's blood pressure and vital signs. The door to balloon time was 42 minutes. At 12:22, we established the blood flow in the posterolateral branch with RAINER-3 flow. DT: 23:34:19 TT: 00:47:00 Ref: [id number] - TID: [id number] MTDD
--- NOTE | 2024-12-17 01:19 | ESCONSULT_ITS ---
RE: POPEYE BASHIR : 1980 DATE OF CONSULTATION: 12/16/2024 CONSULTING PHYSICIAN: Emergency room physician. REASON FOR CONSULTATION: Evaluation of acute ST segment elevation myocardial infarction. CHIEF COMPLAINT: Chest pain. HISTORY OF PRESENT ILLNESS: The patient is a 44-year-old male with no significant medical problems. He is doing fairly well until today. The patient was exercising in the fitness center this morning, presented to the emergency department around 11:35 a.m. with severe episode of crushing chest pain, left. He drove himself to the emergency room, was having severe crushing chest pain radiating to both shoulders for the last 1-1/2 to 2 hours. In emergency room, static electrocardiogram showed that the patient had acute ST segment elevation inferior wall myocardial infarction (STEMI). Cardiac alert was called. I was called immediately. Immediately, the patient was transferred to the cardiac catheterization laboratory for primary angioplasty. The patient apparently was working and began having some chest pain around 9 o'clock this morning, but as initially, it was tightness, subsequently severe pain radiated to both shoulders and hence, he came himself to the emergency room by driving. The patient underwent successful primary angioplasty of the right coronary artery. Posterolateral branch is 100% occluded, PDA 100% occluded, and also one of the branches of PJ also 100% occluded, underwent successful multivessel complex PCI of the distal right coronary artery branches, both posterolateral branches, posterior descending artery, and also coronary thrombectomy, computer-assisted vacuum thrombectomy was also performed. 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 Right radial approach was taken for the procedure. MEDICATIONS AT HOME: None. PAST MEDICAL HISTORY: None. SOCIAL HISTORY: The patient is a nonsmoker. He does not drink alcoholic beverages. FAMILY HISTORY: Noncontributory. PHYSICAL EXAMINATION: General: A well-nourished, pleasant male, alert, awake, in no acute distress. Vital Signs: His blood pressure is 140/80. Initially it was only 100/70, subsequently went to 130/70, pulse rate is 60, respirations 18, temperature is normal. HEENT: Head is atraumatic and normocephalic. Eyes normal. ENT normal. Neck: Supple. No JVD. Carotid pulse felt with no bruits. Chest: Symmetrical. Lungs: Decreased breath sounds. No rales or rhonchi. Heart: S1 and S2, regular. S4 gallop heard. Abdomen: Thin and soft. Extremities: No edema. Genitourinary And Rectal: Not performed. Neurologic: Normal. DIAGNOSTIC DATA: Electrocardiogram showed sinus rhythm, __ ST segment elevation and inferior wall _ STEMI involving inferolateral myocardial infarction. ASSESSMENT AND PLAN: Acute ST segment elevation inferior wall myocardial infarction secondary to right coronary artery occlusion, multiple branches. PDA and PL branches were occluded, underwent successful multivessel angioplasty, atherectomy, and stent placement of the distal right coronary artery branches. PJ, PDA, and PL 2 branches were all occluded and underwent successful PCI and PTCA. RECOMMENDATIONS: The patient was admitted in intensive care unit today because of extensive myocardial infarction with complex PCI. If he remains stable, we will transfer him to telemetry tomorrow. Condition is critical. Prognosis is stable now. The patient had a successful primary angioplasty, stent placement and complex PCI urgently. Door to balloon time was 42 minutes. The patient came around 11:40 to the emergency department. At 12:22, coronary artery flow was established. DT: 23:27:53 TT: 00:35:00 Ref: [id number] - TID: [id number] [facility]
[2024-12-17 01:22] LABS: Troponin I > 125.000 ng/mL (0.0-0.045)
[2024-12-17 06:23] LABS: Basophils % (Auto) 0 % (0-2.5); Eosinophils % (Auto) 0 % (0-10); Hematocrit 42.6 % (41.0-53.0); Hemoglobin 14.7 g/dL (13.5-16.0); Immature Granulocytes % (Auto) 0 % (0-0); Immature Granulocytes Auto 0.05 Thou/mm3 (0.00-0.00); Lymphocytes # (Auto) 1.1 Thou/mm3 (1.0-4.8); Lymphocytes % (Auto) 8 % (10-50); Mean Corpuscular HGB Conc 34.5 g/dl (31.0-37.0); Mean Corpuscular Volume 87 fL (80-100); Monocytes # (Auto) 1.2 Thou/mm3 (0.0-0.8); Monocytes % (Auto) 8 % (0-12); Neutrophils # (Auto) 11.7 Thou/mm3 (1.8-7.7); Neutrophils % (Auto) 83 % (37-80); Nucleated Red Blood Cell % 0 /100 WBC (0); Platelet Count 201 Thou/mm3 (140-440); RDW Standard Deviation 45.4 fL (35.1-43.9); White Blood Count 14.1 Thou/mm3 (3.8-10.6)
[2024-12-17 06:24] LABS: Glucose Estimated Average 103 mg/dL (80-131); Hemoglobin A1C 5.2 % Hgb (4.8-6.0)
[2024-12-17 06:30] LABS: INR 1.1 (0.9-1.3); Partial Thromboplastin Time 27.3 Seconds (22.0-36.0); Prothrombin Time 11.9 Seconds (9.0-12.2)
[2024-12-17 06:56] LABS: Alanine Aminotransferase 98 U/L (10-49); Albumin, Serum 3.8 gm/dL (3.5-5.0); Albumin/Globulin Ratio 1.2 (1.2-2.2); Alkaline Phosphatase 42 U/L (46-116); Anion Gap 10 (7-16); Aspartate Amino Transferase 379 U/L (0-34); BUN/Creatinine Ratio 18 Ratio (12-20); Bilirubin,Total 0.8 mg/dL (0.3-1.2); Blood Urea Nitrogen 16 mg/dL (9-23); Calcium 8.6 mg/dL (8.3-10.6); Calcium (Corrected) 8.8 mg/dL (8.5-10.1); Carbon Dioxide 24.3 mMol/L (20.0-31.0); Cardiac Risk Estimate 4.7 RATIO (4.0-6.7); Chloride 98 mMol/L (98-107); Cholesterol 145 mg/dL (132-200); Creatinine (Component) 0.9 mg/dL (0.6-1.3); Estimated Creatinine Clearance 148.1 mL/min (>60); Globulin 3.2 gm/dL (2.3-3.5); Glucose 109 mg/dL (74-106); HDL Cholesterol 31 mg/dL (40-60); LDL Cholesterol,Calculated 92 mg/dL (0-130); Magnesium 1.9 mg/dL (1.6-2.6); Osmolality,Calculated 266 (275-295); Phosphorous 3.3 mg/dL (2.4-5.1); Potassium 3.2 mMol/L (3.4-5.1); Sodium 132 mMol/L (136-145); Thyroid Stimulating Hormone 0.21 uIU/mL (0.55-4.78); Triglycerides 108 mg/dL (30-150); eGFR > 60 See Note
[2024-12-17] MEDS: carVEDILOL 3.125 MG TABLET PO (08:03)
[2024-12-17] MEDS: ASPIRIN EC 81 MG TABEC PO (08:04)
[2024-12-17] MEDS: PANTOPRAZOLE INJ 40 MG VIAL IVP (08:04)
[2024-12-17] MEDS: TICAGRELOR 90 MG TABLET PO ×2 (08:04→20:44)
[2024-12-17] MEDS: VALSARTAN 80 MG TABLET PO ×2 (08:04→20:42)
--- NOTE | 2024-12-17 08:43 | PD.INTPROG ---
Documentation for date of: 12/17/24 Subjective Subjective Interval history: This is a 44yo M admitted to the ICU overnight s/p STEMI with PCI and RCA stent and angioplasty with thrombectomy. Overnight he did well with resolution in chest pain. This AM he denies n/v, fever/chills, chest pain/SOB, cough. He is tolerating a PO diet and has no complaints. 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 12/17/24 04:44 12/17/24 04:44 Labs: Laboratory Results - last 24 hr 12/16/24 12/16/24 12/16/24 11:37 12:14 12:38 WBC 15.8 H RBC 5.56 Hgb 16.9 H Hct 48.7 MCV 88 MCH 30.4 MCHC 34.7 RDW Std Deviation 45.2 H Plt Count 213 Neut % (Auto) 79 Lymph % (Auto) 14 Gentry % (Auto) 7 Eos % (Auto) 0 Baso % (Auto) 0 Neut # (Auto) 12.4 H Lymph # (Auto) 2.1 Gentry # (Auto) 1.1 H Eos # (Auto) 0.1 Baso # (Auto) 0.0 Immature Gran # (Auto) 0.05 H Absolute Nucleated RBC 0.00 Immature Gran % 0 Nucleated RBC % 0 PT INR APTT Activated Clotting Time 215.0 H 351.0 H Sodium 137 Potassium 3.5 Chloride 103 Carbon Dioxide 26.3 Anion Gap 8 BUN 19 Creatinine 1.1 Estim Creat Clear Calc 121.2 eGFR > 60 BUN/Creatinine Ratio [address] Glu mg/dL Hemoglobin A1c Calculated Osmolality 278 Calcium 8.8 Corrected Calcium 8.8 Phosphorus Magnesium 1.8 Total Bilirubin 0.6 AST 55 H ALT 45 Alkaline Phosphatase 53 Troponin I 0.758 H* B-Natriuretic Peptide < 20 Total Protein 7.9 Albumin 4.5 Globulin 3.4 Albumin/Globulin Ratio 1.3 Triglycerides Cholesterol LDL Cholesterol, Calc HDL Cholesterol Cholesterol/HDL Ratio [facility] 12/16/24 12/16/24 12/17/24 13:47 18:03 00:24 WBC RBC Hgb Hct MCV MCH MCHC RDW Std Deviation Plt Count Neut % (Auto) Lymph % (Auto) Gentry % (Auto) Eos % (Auto) Baso % (Auto) Neut # (Auto) Lymph # (Auto) Gentry # (Auto) Eos # (Auto) Baso # (Auto) Immature Gran # (Auto) Absolute Nucleated RBC Immature Gran % Nucleated RBC % PT INR APTT Activated Clotting Time Sodium Potassium Chloride Carbon Dioxide Anion Gap BUN Creatinine Estim Creat Clear Calc eGFR BUN/Creatinine Ratio Glucose Estimated Ave Glu mg/dL Hemoglobin A1c Calculated Osmolality Calcium Corrected Calcium Phosphorus Magnesium Total Bilirubin AST ALT Alkaline Phosphatase Troponin I 75.360 H* D > 757181.000 H* D > 125.000 H* D B-Natriuretic Peptide Total Protein Albumin Globulin Albumin/Globulin Ratio Triglycerides Cholesterol LDL Cholesterol, Calc HDL Cholesterol Cholesterol/HDL Ratio TSH 12/17/24 04:44 WBC 14.1 H RBC 4.90 Hgb 14.7 D Hct 42.6 MCV 87 MCH 30.0 MCHC 34.5 RDW Std Deviation 45.4 H Plt Count 201 Neut % (Auto) 83 H Lymph % (Auto) 8 L Gentry % (Auto) 8 Eos % (Auto) 0 Baso % (Auto) 0 Neut # (Auto) 11.7 H Lymph # (Auto) 1.1 Gentry # (Auto) 1.2 H Eos # (Auto) 0.0 Baso # (Auto) 0.0 Immature Gran # (Auto) 0.05 H Absolute Nucleated RBC 0.00 Immature Gran % 0 Nucleated RBC % 0 PT 11.9 INR 1.1 APTT 27.3 Activated Clotting Time Sodium 132 L Potassium 3.2 L Chloride 98 Carbon Dioxide 24.3 Anion Gap 10 BUN 16 Creatinine 0.9 Estim Creat Clear Calc 148.1 eGFR > 60 BUN/Creatinine Ratio 18 Glucose [address] Glu mg/dL 103 Hemoglobin A1c 5.2 Calculated Osmolality 266 L Calcium 8.6 Corrected Calcium 8.8 Phosphorus 3.3 Magnesium 1.9 Total Bilirubin 0.8 AST 379 H ALT 98 H Alkaline Phosphatase 42 L D Troponin I B-Natriuretic Peptide Total Protein 7.0 Albumin 3.8 D Globulin 3.2 Albumin/Globulin Ratio 1.2 Triglycerides 108 Cholesterol 145 LDL Cholesterol, Calc 92 HDL Cholesterol 31 L Cholesterol/HDL Ratio 4.7 TSH 0.21 L Assessment & Plan Additional Assessment Additional Assessment: In summary this is a 44yo M admitted to the ICU for STEMI s/p PCI a/p STEMI- started on ASA and brilinta - on BB and ARB - echo pending - cardiology following HTN- on meds and will increase as able HypoK- replete PO Transaminitis- in the setting of acute PA Leukocytosis- mild, reactive, trending down case d/w ICU team and cardiology labs, imaging , records reviewed ~30min for review, discussion, intervention and formulation of POC Provider Notation Provider Notation: Although this document has been carefully reviewed, there may still be some phonetic and other typographical errors. These errors are purely grammatical due to imperfections in the software program and should not be construed in any way to compromise the substance of the patient's medical care during this visit. Thank you for the opportunity and privilege in assisting you with this patient's care and management.
[2024-12-17 10:04] LABS: Collection Type, Urine Clean Catch; Squamous Epithelial Cell,Urine 0 /hpf (0-5)
[2024-12-17 10:26] LABS: Bilirubin,Urine Negative (Negative); Blood,Urine Negative (Negative); Clarity,Urine Clear (Clear/Hazy); Color,Urine Colorless (Lt Yel-Yel); Glucose, Urine Negative (Negative); Ketones,Urine Negative (Negative); Leukocyte Esterase,Urine Negative (Negative); Nitrite,Urine Negative (Negative); PH,Urine 6.5 (5.0-7.0); Protein,Urine Negative (Neg - Trace); RBC,Urine < 1 /hpf (0-3); Specific Gravity,Urine 1.002 (1.001-1.035); Urobilinogen,Urine Negative mg/dL (0.0-1.0); WBC,Urine < 1 /hpf (0-5)
[2024-12-17 10:34] LABS: Amphetamine/Methamp Scrn,U Negative (Negative); Barbiturate Screen,Urine Negative (Negative); Benzodiazepines Screen,Urine Negative (Negative); Benzoylecgonine Screen, Ur Negative (Negative); Fentanyl Screen,Urine Negative (Negative); Opiate Screen,Urine Negative (Negative); THC Screen,Urine Negative (Negative)
[2024-12-17] MEDS: POTASSIUM CHLORIDE 20 mEq TABCR 40 MEQ PO (13:23)
--- NOTE | 2024-12-17 15:51 | PD.RESEVENT ---
Documentation for date of: 12/17/24 Event Note Event Note: Notified by Dr. Mcbride for ICU downgrade and sign-out. In short, patient is a 44 yo male with PMH of no significant past medical history presented to the ED on 12/16/2024 with chief complaint of chest pain, nausea and shortness of breath that occurred while working out in the gym. Troponin went from 0.7 to 75. EKG showed significant ST elevations and cardiac alert was called. Cardiology was consulted and patient underwent cardiac cath. He underwent PCI with RCA stent and angioplasty with thrombectomy. He was transferred to the ICU overnight and did well, and is stable for downgrade back to floors for 12/18/2024 to Team A for continued management. I have reviewed and discussed the patient's care with my attending, Dr. Owen Murcia MD PGY-3
--- NOTE | 2024-12-17 16:02 | ESPR_ITS ---
<Statement entered by Jyothi Vick DO - 12/17/24 18:15> Senior attestation: Patient was examined and case was reviewed with team including attending physician. Note reviewed, I agree with most of its contents and agree with the patient's care. Documentation for date of: 12/17/24 Subjective Subjective Interval history: Reece Joyce is a 44-year-old male with no significant past medical history who presented to the ED on 12/16 for chest pain, nausea, and shortness of breath. Patient developed symptoms while working out at the gym and states that he has never experienced this pain before. 8/10 in severity, radiated to shoulders bilaterally, with associated anxiety. 12/17: Seen and examined at bedside in ICU. No acute overnight events reported. States that he no longer has any chest pain and has been able to ambulate in his room without any shortness of breath. He is now status post cardiac catheterization on evening of 12/16, where he was found to have RCA, PDA, and PL branch occlusions and underwent successful multivessel angioplasty, atherectomy, and stent placement. K noted to be low and repleted. Spoke to floor team who will resume care for patient tomorrow, 12/18. Exam Vital Signs Temp Pulse Resp BP Pulse Ox O2 Del Method O2 Flow Rate 98.5 F 73 23 H 145/73 H 97 Room Air 2 12/17/24 12:00 12/17/24 14:00 12/17/24 14:00 12/17/24 14:00 12/17/24 14:00 12/17/24 12:00 12/17/24 09:10 Narrative Exam General: AOx3, no acute distress, able to speak full sentences HEENT: NC/AT, mucous membranes moist, bilateral sclera anicteric Cardiovascular: regular rate and rhythm, S1/S2 present, no murmurs appreciated Pulmonary: clear to auscultation bilaterally, no rales/rhonchi/wheezes Abdominal: soft, non-tender, non-distended, no rebound/guarding, normal bowel sounds present Musculoskeletal: normal ROM, no peripheral edema Skin: warm and dry, intact, no rashes Neuro: CN II-XII intact, no focal deficits Objective Labs 12/17/24 04:44 12/17/24 04:44 Labs: Laboratory Results - last 24 hr 0112/17/24 12/17/24 18:03 00:24 04:44 WBC 14.1 H RBC 4.90 Hgb 14.7 D Hct 42.6 MCV 87 MCH 30.0 MCHC 34.5 RDW Std Deviation 45.4 H Plt Count 201 Neut % (Auto) 83 H Lymph % (Auto) 8 L [place] % (Auto) 8 Eos % (Auto) 0 Baso % (Auto) 0 Neut # (Auto) 11.7 H Lymph # (Auto) 1.1 [place] # (Auto) 1.2 H Eos # (Auto) 0.0 Baso # (Auto) 0.0 Immature Gran # (Auto) 0.05 H Absolute Nucleated RBC 0.00 Immature Gran % 0 Nucleated RBC % 0 PT 11.9 INR 1.1 APTT 27.3 Sodium 132 L Potassium 3.2 L Chloride 98 Carbon Dioxide 24.3 Anion Gap 10 BUN 16 Creatinine 0.9 Estim Creat Clear Calc 148.1 eGFR > 60 BUN/Creatinine Ratio [address] Glu mg/dL 103 Hemoglobin A1c 5.2 Calculated Osmolality 266 L Calcium 8.6 Corrected Calcium 8.8 Phosphorus 3.3 Magnesium 1.9 Total Bilirubin 0.8 AST 379 H ALT 98 H Alkaline Phosphatase 42 L D Troponin I > 261291.000 H* D > 125.000 H* D Total Protein 7.0 Albumin 3.8 D Globulin 3.2 Albumin/Globulin Ratio 1.2 Triglycerides 108 Cholesterol 145 LDL Cholesterol, Calc 92 HDL Cholesterol 31 L Cholesterol/HDL Ratio 4.7 TSH 0.21 L Ur Collection Type Urine Color Urine Clarity Urine pH Ur Specific [place] Urine Protein Urine Glucose (UA) Urine Ketones Urine Blood Urine Nitrite Urine Bilirubin Urine Urobilinogen (Auto) Ur Leukocyte Esterase Urine RBC Urine WBC Ur Squamous Epith Cells Urine Bacteria Urine Opiates Screen Urine Fentanyl Screen Ur Barbiturates Screen U Amphetamin/Meth Scrn U Benzodiazepines Scrn U Cocaine Metab Screen U Marijuana (THC) Screen 12/17/24 09:50 WBC RBC Hgb Hct MCV MCH MCHC RDW Std Deviation Plt Count Neut % (Auto) Lymph % (Auto) [place] % (Auto) Eos % (Auto) Baso % (Auto) Neut # (Auto) Lymph # (Auto) [place] # (Auto) Eos # (Auto) Baso # (Auto) Immature Gran # (Auto) Absolute Nucleated RBC Immature Gran % Nucleated RBC % PT INR APTT Sodium Potassium Chloride Carbon Dioxide Anion Gap BUN Creatinine Estim Creat Clear Calc eGFR BUN/Creatinine Ratio Glucose Estimated Ave Glu mg/dL Hemoglobin A1c Calculated Osmolality Calcium Corrected Calcium Phosphorus Magnesium Total Bilirubin AST ALT Alkaline Phosphatase Troponin I Total Protein Albumin Globulin Albumin/Globulin Ratio Triglycerides Cholesterol LDL Cholesterol, Calc HDL Cholesterol Cholesterol/HDL Ratio TSH Ur Collection Type Clean Catch Urine Color Colorless A Urine Clarity Clear Urine pH 6.5 Ur Specific [place] 1.002 Urine Protein Negative Urine Glucose (UA) Negative Urine Ketones Negative Urine Blood Negative Urine Nitrite Negative Urine Bilirubin Negative Urine Urobilinogen (Auto) Negative Ur Leukocyte Esterase Negative Urine RBC < 1 Urine WBC < 1 Ur Squamous Epith Cells 0 Urine Bacteria None Urine Opiates Screen Negative Urine Fentanyl Screen Negative Ur Barbiturates Screen Negative U Amphetamin/Meth Scrn Negative U Benzodiazepines Scrn Negative U Cocaine Metab Screen Negative U Marijuana (THC) Screen Negative Quality Measures Quality Measures none Assessment & Plan Assessment Current Active Medications: Generic Name Dose Route Start Last Admin Trade Name Freq PRN Reason Stop Dose Admin Acetaminophen 650 mg 12/16/24 11:44 Acetaminophen 325 Mg Tablet PO 01/15/25 11:43 Q6H PRN Fever >101.5 Acetaminophen 650 mg 12/16/24 11:44 12/16/24 21:23 Acetaminophen 325 Mg Tablet PO 01/15/25 11:43 650 mg Q6H PRN Administration PAIN SCALE 1-3 (mild Hydrocodone Bitart/Acetaminophen 1 tab 12/16/24 11:44 12/17/24 00:26 Hydrocodone/Apap 5/325 Tablet PO 12/21/24 11:43 1 tab Q4HR PRN Administration PAIN SCALE 4-6 (Moderate Aspirin 81 mg 12/17/24 09:00 12/17/24 08:04 Aspirin Ec 81 Mg Tabec PO 01/16/25 08:59 81 mg QDAY ANNETTE Administration Atorvastatin Calcium 80 mg 12/16/24 21:00 12/16/24 21:23 Atorvastatin Calcium 20 Mg Tablet PO 01/15/25 20:59 80 mg HS ANNETTE Administration Carvedilol 6.25 mg 12/17/24 17:30 Carvedilol 3.125 Mg Tablet PO 01/16/25 17:29 BIDWM ANNETTE Nitroglycerin 0.4 mg 12/16/24 11:47 Nitroglycerin 0.4 Mg Subl Btl #25 SL Q5MIN PRN CHEST PAIN Ondansetron HCl 4 mg 12/16/24 11:44 12/17/24 00:27 Ondansetron Inj 2 Mg/Ml Inj 2 Ml IV 01/15/25 11:43 4 mg Q6H PRN Administration NAUSEA OR VOMITING Protocol Sennosides 1 tab 12/16/24 11:44 Senna Tablet PO 01/15/25 11:43 QDAY PRN constipation Protocol Ticagrelor 90 mg 12/17/24 09:00 12/17/24 08:04 Ticagrelor 90 Mg Tablet PO 01/16/25 08:59 90 mg BID ANNETTE Administration Valsartan 80 mg 12/16/24 21:00 12/17/24 08:04 Valsartan 80 Mg Tablet PO 01/15/25 20:59 80 mg BID ANNETTE Administration Plan Reece Joyce is a 44-year-old male with no significant past medical history who presented to the ED on 12/16 for chest pain, nausea, and shortness of breath. Patient developed symptoms while working out at the gym and states that he has never experienced this pain before. 8/10 in severity, radiated to shoulders bilaterally, with associated anxiety. Status post cardiac catheterization on evening of 12/16, where he was found to have RCA, PDA, and PL branch occlusions and underwent successful multivessel angioplasty, atherectomy, and stent placement. Neurological No active problems Cardiovascular Presentd with 8/10 chest pain that radiated to shoulders bilaterally with associated shortness of breath and anxiety. Troponins increased from 0.758 -> 75.4 -> 125,[address] elevations in inferior leads, thus heart alert was called. Status post cardiac catheterization on evening of 12/16, where he was found to have RCA, PDA, and PL branch occlusions and underwent successful multivessel angioplasty, atherectomy, and stent placement. Currently denies any symptoms and tolerated cardiac cath well. #STEMI s/p cardiac cath with angioplasty, stents, and atherectomy on 12/16 #Acute coronary syndrome - continue aspirin - continue ticagrelor - continue atorvastatin - continue carvedilol #Hypertension - continue valsartan - continue carvedilol as above Pulmonary No active problems Renal #Hypokalemia - replete as needed GI #Transaminitis AST increased from 55 to 379 and ALT increased from 45 to 98 in setting of STEMI Endo No active problems Heme #Leukocytosis Improved from 15.8 to 14.1, likely secondary to stress in setting of STEMI Hospital management: Disposition: will be downgraded to floors starting 12/17 Pressors: none Sedation: none Fluids: not indicated Diet: cardiac Lines: peripheral DVT prophylaxis: on ASA and ticagrelor Thomas: not indicated CODE STATUS: full code ----- Plan discussed with attending physician Dr. Grace and senior resident physician Dr. Vick. Clyde Mcbride MD PGY-1 Internal Medicine
[2024-12-17] MEDS: carVEDILOL 3.125 MG TABLET 6.25 MG PO (17:40)
[2024-12-17] MEDS: ATORVASTATIN CALCIUM 20 MG TABLET 80 MG PO (20:40)
[2024-12-18] VITALS (14 sets, daily range): BP systolic 107–147; BP diastolic 57–84; PULSE 70–85; RESP 13–29; TEMP 37.1–37.6; O2SAT 95–98
--- NOTE | 2024-12-18 01:49 | ESPR_ITS ---
RE: REECE BASHIR : 1980 DATE OF SERVICE: 12/17/2024 SUBJECTIVE: The patient, Reece Bashir, is a 44-year-old male admitted to the hospital with acute inferior wall myocardial infarction, ST elevation, underwent complex PCI, ___ multiple vessel angioplasty, stent placement of the right coronary artery, PL branches, posterior descending artery, doing better now. No shortness of breath or chest pain. OBJECTIVE: General: A well-nourished male, alert, awake, in no acute distress. Vital Signs: Shows blood pressure 140/70_, pulse 76. Neck: Supple. No JVD. Chest: Symmetrical. Lungs: Decreased breath sounds. No rales or rhonchi. Heart: Sounds are regular. S4 gallop heard. Abdomen: Thin and obese, soft. Extremities: No edema. Genitourinary: Not performed. Rectal: Not performed. ICE CRUSHER: Normal. LABORATORY DATA: His lab data showed troponin went up to 125_ which is quite surprising, but no issues. It is otherwise unremarkable. Lab data showed mildly low potassium of 3.2. BUN is normal. Creatinine is 0.9. IMPRESSION: 1. Acute inferior lateral myocardial infarction, underwent successful PCI and stent placement. 2. Hypertension. 3. Obesity. RECOMMENDATIONS: Continue medical management. We will transfer the patient to telemetry. Continue aspirin, Brilinta, statin therapy, low-dose beta-fam, and valsartan and we will monitor the patient closely. The patient can be transferred telemetry today. DT: 23:58:38 TT: 01:28:00 Ref: [id number] - TID: [id number] MTDD
[2024-12-18 06:01] LABS: Basophils % (Auto) 0 % (0-2.5); Eosinophils % (Auto) 0 % (0-10); Hematocrit 47.5 % (41.0-53.0); Immature Granulocytes % (Auto) 0 % (0-0); Immature Granulocytes Auto 0.04 Thou/mm3 (0.00-0.00); Lymphocytes # (Auto) 1.5 Thou/mm3 (1.0-4.8); Lymphocytes % (Auto) 14 % (10-50); Mean Corpuscular HGB Conc 33.7 g/dl (31.0-37.0); Mean Corpuscular Volume 89 fL (80-100); Monocytes # (Auto) 1.3 Thou/mm3 (0.0-0.8); Monocytes % (Auto) 12 % (0-12); Neutrophils # (Auto) 8.2 Thou/mm3 (1.8-7.7); Neutrophils % (Auto) 74 % (37-80); Nucleated Red Blood Cell % 0 /100 WBC (0); Platelet Count 199 Thou/mm3 (140-440); RDW Standard Deviation 46.3 fL (35.1-43.9); Red Blood Count 5.33 Miln/mm3 (4.50-5.90); White Blood Count 11.1 Thou/mm3 (3.8-10.6)
[2024-12-18 06:27] LABS: Alanine Aminotransferase 82 U/L (10-49); Albumin, Serum 4.1 gm/dL (3.5-5.0); Albumin/Globulin Ratio 1.1 (1.2-2.2); Alkaline Phosphatase 47 U/L (46-116); Anion Gap 8 (7-16); Aspartate Amino Transferase 220 U/L (0-34); BUN/Creatinine Ratio 13 Ratio (12-20); Bilirubin,Total 1.2 mg/dL (0.3-1.2); Blood Urea Nitrogen 16 mg/dL (9-23); Calcium 8.7 mg/dL (8.3-10.6); Calcium (Corrected) 8.7 mg/dL (8.5-10.1); Carbon Dioxide 25.1 mMol/L (20.0-31.0); Chloride 103 mMol/L (98-107); Creatinine (Component) 1.2 mg/dL (0.6-1.3); Estimated Creatinine Clearance 111.2 mL/min (>60); Globulin 3.8 gm/dL (2.3-3.5); Glucose 88 mg/dL (74-106); Magnesium 2.1 mg/dL (1.6-2.6); Osmolality,Calculated 272 (275-295); Phosphorous 1.9 mg/dL (2.4-5.1); Potassium 4.2 mMol/L (3.4-5.1); Sodium 136 mMol/L (136-145); Total Protein 7.9 gm/dL (5.7-8.2); eGFR > 60 See Note
[2024-12-18] MEDS: TICAGRELOR 90 MG TABLET PO (08:14)
[2024-12-18] MEDS: VALSARTAN 80 MG TABLET PO (08:15)
[2024-12-18] MEDS: ASPIRIN EC 81 MG TABEC PO (08:15)
[2024-12-18] MEDS: carVEDILOL 3.125 MG TABLET 6.25 MG PO (08:18)
--- NOTE | 2024-12-18 12:36 | PC.NURSE ---
at 1206 vital signs HR 93, oxygen sat. 98% on room air, respiratory rate at 11, BP 110/78, 0/10 pain, at 1213 pt walked about 100 feet with oxygen monitor on heart rate 76, 98% on room air, BP 114/74, completed by RICHIE Tam
--- NOTE | 2024-12-18 13:59 | ESPR_ITS ---
Documentation for date of: 12/18/24 Subjective Subjective Interval history: The patient was admitted to hospital [address] with acute ST segment elevation inferior wall AK underwent multiple stent and PCI procedures complex procedure 3 vessels are occluded postprocedure doing very well no shortness of breath chest pain echo showed preserved EF of 50% clinically doing well no angina no shortness of breath no angina no arrhythmias Exam Vital Signs Temp Pulse Resp BP Pulse Ox O2 Del Method O2 Flow Rate 99.0 F 70 20 134/71 H 97 Room Air 0 12/18/24 08:17 12/18/24 13:00 12/18/24 13:00 12/18/24 12:02 12/18/24 13:00 12/18/24 12:02 12/18/24 13:00 Routine HEENT Exam Head: Present normocephalic and atraumatic Eye: Present EOMI and PERRL ENT: Present mucous membranes moist Routine Neck Exam Neck: Present supple and trachea midline Routine Respiratory Exam Respiratory: Present chest non-tender, lungs clear, normal breath sounds and no resp distress Routine Cardiovascular Exam Cardiovascular: Present RRR Routine Abdominal Exam Abdominal: Present soft and normoactive bowel sounds Routine Extremities Exam Extremities: Present full ROM Routine Skin Exam Skin: Present intact, dry and warm Routine Neurological Exam Neurological: Present alert, oriented X3 and CN II-XII intact Routine Psychiatric Exam Psychiatric: Present normal affect and normal thought process Objective Labs 12/18/24 04:24 12/18/24 04:24 Labs: Laboratory Results - last 24 hr 12/18/24 04:24 WBC 11.1 H RBC 5.33 Hgb 16.0 Hct 47.5 MCV 89 MCH 30.0 MCHC 33.7 RDW Std Deviation 46.3 H Plt Count 199 Neut % (Auto) 74 Lymph % (Auto) 14 [place] % (Auto) 12 Eos % (Auto) 0 Baso % (Auto) 0 Neut # (Auto) 8.2 H Lymph # (Auto) 1.5 [place] # (Auto) 1.3 H Eos # (Auto) 0.0 Baso # (Auto) 0.0 Immature Gran # (Auto) 0.04 H Absolute Nucleated RBC 0.00 Immature Gran % 0 Nucleated RBC % 0 Sodium 136 Potassium 4.2 D Chloride 103 Carbon Dioxide 25.1 Anion Gap 8 BUN 16 Creatinine 1.2 Estim Creat Clear Calc 111.2 eGFR > 60 BUN/Creatinine Ratio 13 Glucose 88 Calculated Osmolality 272 L Calcium 8.7 Corrected Calcium 8.7 Phosphorus 1.9 L Magnesium 2.1 Total Bilirubin 1.2 AST 220 H ALT 82 H Alkaline Phosphatase 47 Total Protein 7.9 Albumin 4.1 Globulin 3.8 H Albumin/Globulin Ratio 1.1 L Assessment & Plan Assessment and plan (1) ST elevation myocardial infarction (STEMI): Status: Acute Assessment and plan: Patient underwent successful multivessel PCI stent placement good results clinically hemodynamically stable ejection fraction 50% (2) Subsequent ST elevation (STEMI) myocardial infarction of inferior wall: Status: Acute Assessment and plan: Continue medical management including aspirin and Brilinta for next 12 months atorvastatin 80 mg daily discharge home on aspirin Brilinta as well as atorvastatin valsartan 160 mg daily and carvedilol 6.25 twice daily A&P Narrative The patient is doing clinically well stable condition can be discharged home I will see him for follow-up in 1 week patient should be off work at least 2 weeks minimal recommended to drive locally only next week and not to lift any heavy weights. Time Spent With Patient Time: Total time spent is 30 minutes greater than 50% in coordination of care (as documented) at patient's floor/unit and/or counseling patient:
--- NOTE | 2024-12-18 14:27 | PC.NURSE ---
pt discharge instructions complete, with all patients questions answered, PIVs x2 removed and hemostasis achieved, Vital signs at discharge: temp. 98.8, HR 75, oxygen saturation 98%, RR 24, BP 129/69, 0/10 pain, patient belongings gathered with belongings form complete
== END 2024-12-18 14:24 | disposition home or self-care (01) | DRG 321 ==
LOC: SERX 14:01 → SERHOLD 14:07 → S2SX 17:03
PROVIDERS: Internal Medicine Cardiovascular Disease; Nurse Practitioner Family; Student in an Organized Health Care Education/Training Program; Admitting Provider Student in an Organized Health Care Education/Training Program; Emergency Provider Emergency Medicine; Visit Provider Student in an Organized Health Care Education/Training Program
PROC: 027034Z Dilation of Coronary Artery, One Artery with Drug-eluting Intraluminal Device, Percutaneous Approach (ICD-10-PCS; principal; 2024-12-16 14:15)
PROC: 5A2204Z Restoration of Cardiac Rhythm, Single (ICD-10-PCS; 2024-12-16 14:15)
DX: I21.19 ST elevation (STEMI) myocardial infarction involving other coronary artery of inferior wall (principal); D75.1 Secondary polycythemia; E87.6 Hypokalemia; I25.10 Atherosclerotic heart disease of native coronary artery without angina pectoris; R73.9 Hyperglycemia, unspecified; D72.829 Elevated white blood cell count, unspecified; E66.9 Obesity, unspecified; I10 Essential (primary) hypertension; I95.9 Hypotension, unspecified; F41.9 Anxiety disorder, unspecified; Z68.34 Body mass index [BMI] 34.0-34.9, adult; Z79.899 Other long term (current) drug therapy; Z79.82 Long term (current) use of aspirin; Z79.02 Long term (current) use of antithrombotics/antiplatelets
CPT/HCPCS: 36415; 80053; 80061; 80307; 81001; 83036; 83735; 83880; 84100; 84443; 84484; 85025; 85347; 85610; 85730; 87081; 93005; 93306; 99152; 99153; 99285; A4649; A46499; C1725; C1769; C1874; C1887; C1894; J2405; J2470; J7030; Q9967; A9270

== ENCOUNTER → 2025-01-03 | Outpatient (CLI) | payer BC, SELFPAY ==
[2025-01-03 11:35] LABS: Alanine Aminotransferase 39 U/L (10-49); Albumin, Serum 4.2 gm/dL (3.5-5.0); Alkaline Phosphatase 48 U/L (46-116); Anion Gap 9 (7-16); Aspartate Amino Transferase 31 U/L (0-34); BUN/Creatinine Ratio 20 Ratio (12-20); Bilirubin,Direct 0.2 mg/dL (0.0-0.3); Bilirubin,Total 0.5 mg/dL (0.3-1.2); Blood Urea Nitrogen 22 mg/dL (9-23); Calcium 9.5 mg/dL (8.3-10.6); Carbon Dioxide 27.8 mMol/L (20.0-31.0); Cardiac Risk Estimate 3.6 RATIO (4.0-6.7); Chloride 102 mMol/L (98-107); Cholesterol 121 mg/dL (132-200); Creatinine (Component) 1.1 mg/dL (0.6-1.3); Glucose 88 mg/dL (74-106); HDL Cholesterol 34 mg/dL (40-60); LDL Cholesterol,Calculated 66 mg/dL (0-130); Osmolality,Calculated 279 (275-295); Phosphorous 3.6 mg/dL (2.4-5.1); Potassium 4.4 mMol/L (3.4-5.1); Sodium 139 mMol/L (136-145); Total Protein 7.3 gm/dL (5.7-8.2); Triglycerides 103 mg/dL (30-150); eGFR > 60 See Note
== END | disposition home or self-care (01) ==
PROVIDERS: PCP Internal Medicine Cardiovascular Disease; Referring Provider Internal Medicine Cardiovascular Disease; Visit Provider Internal Medicine Cardiovascular Disease
DX: I22.1 Subsequent ST elevation (STEMI) myocardial infarction of inferior wall (principal); E78.00 Pure hypercholesterolemia, unspecified; Z95.5 Presence of coronary angioplasty implant and graft
CPT/HCPCS: 36415; 80048; 80061; 80076; 84100